=== PATIENT | female | born 1950 | race Caucasian/White ===

== ENCOUNTER 2016-12-26 14:02 | Inpatient (IN) | payer MEDICAID ==
[~2016-12-26] VITALS: Ht 149.9 cm; Wt 28.2 kg
[~2016-12-26 14:02] MED LIST: ALPR1TAB7 PO; ASCO500T11 PO; ASPI81CH43 PO; BACL10TA PO; DIC10C PO; ESOM40CA39 PO; FER325T PO; MET25T PO; TRAZ100T2 PO
[2016-12-26] MEDS ORDERED: ACETAMINOPHEN 325 MG TAB PO ONE ×2 (14:15→14:30)
[2016-12-26 14:49] LABS: Basophils # (auto) 0 uL; Basophils % (auto) 0.4 % (0.0-2.0); CONDITION Y; Eosinophils # (auto) 0.5 uL; Eosinophils % (auto) 4.8 % (0.0-7.0); Hematocrit 28.5 % (36.0-46.0); Hemoglobin 10.1 g/dL (12.2-16.2); Lymphocytes # (auto) 1.5 uL; Lymphocytes % (auto) 13.3 % (10.0-50.0); Mean Corpuscular Hemoglobin 34.1 pg (28.0-32.0); Mean Corpuscular Hgb Conc. 35.6 g/dL (32.0-36.0); Mean Corpuscular Volume 95.8 fL (80.0-100.0); Mean Platelet Volume 8.9 fL (7.4-10.4); Monocytes # (auto) 1.3 uL; Monocytes % (auto) 11.8 % (0.0-12.0); Neutrophils # (auto) 7.9 uL; Neutrophils % (auto) 69.7 % (37.0-80.0); Platelet Count (auto) 339 10^3/uL (140-450); Red Cell Distribution Width 14.4 % (11.6-16.0); White Blood Cell 11.3 10^3/uL (4.4-10.8)
[2016-12-26 15:20] LABS: Albumin 3.6 g/dL (3.4-5.0); BUN/Creatinine Ratio 22.2; Bilirubin, Total 1.1 mg/dL (0.2-1.0); Calcium 8.6 mg/dL (8.5-10.1); Potassium 3.7 mmol/L (3.5-5.1); Total Protein 7.4 g/dL (6.4-8.2)
[2016-12-26] MEDS ORDERED: ASPirin-EC 81 mg tab PO ONE (16:45)
[2016-12-26] MEDS ORDERED: TEMAZEPAM 15 MG CAP PO PRN (17:45)
[2016-12-26] MEDS ORDERED: MORPHINE SULFATE 4 MG/ML SYRG IV PRN (17:45)
[2016-12-26] MEDS ORDERED: NITROGLYCERIN 0.4 MG SL TAB SL PRN (17:45)
[2016-12-26] MEDS ORDERED: HYDROcodone-ACET 5/325MG TAB PO PRN (17:45)
[2016-12-26] MEDS ORDERED: VANCOMYCIN PER PHARMACY 0 MG IV SCH (17:45)
[2016-12-26] MEDS ORDERED: PROMETHAZINE HCL 25 MG/ML 1ML IV PRN (17:45)
[2016-12-26] MEDS ORDERED: DEXTROSE (50%) 50ML SYRG IV PRN (17:45)
[2016-12-26] MEDS ORDERED: ACETAMINOPHEN 500 MG TAB PO PRN (17:45)
[2016-12-26] MEDS ORDERED: LACTULOSE 20Gm/30ML SOLN PO PRN (17:45)
[2016-12-26] MEDS: SODIUM CHLORIDE 0.9% 1,000 ML IV SCH (17:56)
[2016-12-26] MEDS: ACCU-CHEK COMFORT CURVE STRIP VI SCH (17:56)
[2016-12-26] MEDS: FERROUS SULFATE 325 MG TAB PO SCH (18:01)
[2016-12-26] MEDS: PIPERACILLIN-TAZOB 3.375GM 100 ML IV SCH (18:18)
[2016-12-26] MEDS ORDERED: VANCOMYCIN 1GM/250ML D5W 250 ML IV ONE (19:30)
[2016-12-26 21:30] VITALS: BP 122/69
[2016-12-26] MEDS: MUPIROCIN 2% OINT 22GM TOP SCH (22:00)
[2016-12-26 22:30] VITALS: BP 122/69
[2016-12-26] MEDS: ALPRAZolam 0.5 MG TAB PO SCH (22:48)
[2016-12-26] MEDS: BACLOFEN 10 MG TAB PO SCH (22:48)
[2016-12-26] MEDS: ASCORBIC ACID 500 MG TAB PO SCH (22:48)
[2016-12-26] MEDS: traZODone HCL 50 MG TAB PO SCH (22:48)
[2016-12-26] MEDS: METOPROLOL TARTRATE 25 MG TAB PO SCH (22:49)
[2016-12-27] VITALS (8 sets, daily range): BP systolic 91–122; BP diastolic 52–69
[2016-12-27] MEDS: PIPERACILLIN-TAZOB 3.375GM 100 ML IV SCH ×4 (00:56→19:14)
[2016-12-27] MEDS: MORPHINE SULFATE 4 MG/ML SYRG IV PRN ×3 (03:36→19:29)
[2016-12-27] MEDS: ACCU-CHEK COMFORT CURVE STRIP VI SCH ×3 (06:00→12:00)
[2016-12-27] MEDS: SODIUM CHLORIDE 0.9% 1,000 ML IV SCH ×2 (06:11→13:15)
[2016-12-27] MEDS: BACLOFEN 10 MG TAB PO SCH ×3 (06:40→21:57)
[2016-12-27] MEDS: ALPRAZolam 0.5 MG TAB PO SCH ×3 (06:40→21:58)
[2016-12-27 07:29] LABS: Albumin 3.1 g/dL (3.4-5.0); BUN/Creatinine Ratio 16.2; Calcium 8.1 mg/dL (8.5-10.1); Potassium 3.5 mmol/L (3.5-5.1)
[2016-12-27 07:32] LABS: Bilirubin, Total 0.9 mg/dL (0.2-1.0); Total Protein 6.5 g/dL (6.4-8.2)
[2016-12-27 07:56] LABS: Basophils # (auto) 0 uL; Basophils % (auto) 0.2 % (0.0-2.0); CONDITION Y; DEFINITIVE SEE PRINTOUT; Eosinophils # (auto) 0.7 uL; Eosinophils % (auto) 7.5 % (0.0-7.0); Hematocrit 29.3 % (36.0-46.0); Hemoglobin 10.2 g/dL (12.2-16.2); Lymphocytes % (auto) 10.8 % (10.0-50.0); Mean Corpuscular Hemoglobin 30.8 pg (28.0-32.0); Mean Corpuscular Hgb Conc. 34.7 g/dL (32.0-36.0); Mean Corpuscular Volume 88.6 fL (80.0-100.0); Monocytes # (auto) 1.1 uL; Monocytes % (auto) 11.9 % (0.0-12.0); Neutrophils # (auto) 6.6 uL; Neutrophils % (auto) 69.6 % (37.0-80.0); Platelet Count (auto) 256 10^3/uL (140-450); Red Cell Distribution Width 14.8 % (11.6-16.0); White Blood Cell 9.5 10^3/uL (4.4-10.8)
[2016-12-27] MEDS: MUPIROCIN 2% OINT 22GM TOP SCH ×2 (10:00→10:19)
[2016-12-27] MEDS ORDERED: PATIENTS OWN MEDICATION (Esomeprazole Magnesium Trihydr (Nexium) 1 CAP) PO SCH (10:00)
[2016-12-27] MEDS: METOPROLOL TARTRATE 25 MG TAB PO SCH ×2 (10:00→21:58)
[2016-12-27] MEDS: PANTOPRAZOLE 40 MG TAB PO SCH (10:18)
[2016-12-27] MEDS: ASPirin 81 mg TAB PO SCH (10:18)
[2016-12-27] MEDS: ASCORBIC ACID 500 MG TAB PO SCH ×2 (10:18→21:58)
[2016-12-27] MEDS: ENOXAPARIN SOD 40 MG/0.4 ML SYRINGE SC SCH (10:19)
[2016-12-27] MEDS: FERROUS SULFATE 325 MG TAB PO SCH ×2 (10:42→18:40)
[2016-12-27] MEDS ORDERED: DEXTROSE (50%) 50ML SYRG IV PRN (11:00)
[2016-12-27] MEDS ORDERED: SENNA 8.6 MG TAB PO PRN (11:00)
[2016-12-27] MEDS ORDERED: ONDANSETRON HCL 4 MG/2 ML VIAL IV PRN (11:00)
[2016-12-27] MEDS ORDERED: NITROGLYCERIN 0.4MG/HR TOPICAL PATCH TD ONE (11:15)
[2016-12-27] MEDS ORDERED: InsuLIN REG 1unit/0.01ml Soln (100units/ml) SC SCH (11:30)
[2016-12-27] MEDS ORDERED: ACCU-CHEK COMFORT CURVE STRIP VI SCH (11:30)
[2016-12-27] MEDS: Boost Glucose Control 8 Ounces PO SCH ×2 (12:00→18:00)
[2016-12-27] MEDS: HYDROcodone-ACET 7.5/325MG TAB PO PRN (14:07)
[2016-12-27] MEDS: VANCOMYCIN 750 MG in D5W 5% 250 ML IV SCH (18:40)
[2016-12-27] MEDS: IPRATROPIUM BROM 0.5 MG/2.5ML INH SOL NEB SCH (20:17)
[2016-12-27] MEDS: traZODone HCL 50 MG TAB PO SCH (21:57)
[2016-12-27] MEDS: DOCUSATE SOD 100 MG CAP PO SCH (21:57)
[2016-12-28] VITALS (8 sets, daily range): BP systolic 92–139; BP diastolic 47–67
[2016-12-28] MEDS: MORPHINE SULFATE 4 MG/ML SYRG IV PRN ×5 (00:43→23:49)
[2016-12-28] MEDS: IPRATROPIUM BROM 0.5 MG/2.5ML INH SOL NEB SCH ×4 (00:50→18:52)
[2016-12-28] MEDS: BACLOFEN 10 MG TAB PO SCH ×3 (05:34→22:36)
[2016-12-28] MEDS: PIPERACILLIN-TAZOB 3.375GM 100 ML IV SCH ×4 (05:34→20:00)
[2016-12-28] MEDS: ALPRAZolam 0.5 MG TAB PO SCH ×3 (05:34→22:37)
[2016-12-28] MEDS: SODIUM CHLORIDE 0.9% 1,000 ML IV SCH (05:55)
[2016-12-28 06:19] LABS: Potassium 3.7 mmol/L (3.5-5.1)
[2016-12-28 06:22] LABS: BUN/Creatinine Ratio 12.3
[2016-12-28] MEDS: Boost Glucose Control 8 Ounces PO SCH ×3 (08:00→19:03)
[2016-12-28] MEDS: ASPirin 81 mg TAB PO SCH (09:52)
[2016-12-28] MEDS: DOCUSATE SOD 100 MG CAP PO SCH ×2 (09:52→22:36)
[2016-12-28] MEDS: FERROUS SULFATE 325 MG TAB PO SCH ×2 (09:52→17:28)
[2016-12-28] MEDS: METOPROLOL TARTRATE 25 MG TAB PO SCH ×2 (09:53→22:36)
[2016-12-28] MEDS: PANTOPRAZOLE 40 MG TAB PO SCH (09:54)
[2016-12-28] MEDS: ENOXAPARIN SOD 40 MG/0.4 ML SYRINGE SC SCH (09:54)
[2016-12-28] MEDS: ASCORBIC ACID 500 MG TAB PO SCH ×2 (09:54→22:36)
[2016-12-28] MEDS ORDERED: NITROGLYCERIN 0.4MG/HR TOPICAL PATCH TD SCH (10:00)
[2016-12-28] MEDS: HYDROcodone-ACET 7.5/325MG TAB PO PRN ×2 (12:32→22:35)
[2016-12-28] MEDS: VANCOMYCIN 750 MG in D5W 5% 250 ML IV SCH (18:58)
[2016-12-28] MEDS: traZODone HCL 50 MG TAB PO SCH (22:35)
[2016-12-29] VITALS (7 sets, daily range): BP systolic 91–110; BP diastolic 54–66
[2016-12-29] MEDS: PIPERACILLIN-TAZOB 3.375GM 100 ML IV SCH ×4 (02:20→22:34)
[2016-12-29] MEDS: MORPHINE SULFATE 4 MG/ML SYRG IV PRN ×5 (04:13→22:33)
[2016-12-29] MEDS: IPRATROPIUM BROM 0.5 MG/2.5ML INH SOL NEB SCH ×4 (05:52→18:15)
[2016-12-29] MEDS: BACLOFEN 10 MG TAB PO SCH ×3 (06:14→22:27)
[2016-12-29] MEDS: ALPRAZolam 0.5 MG TAB PO SCH ×3 (06:14→22:27)
[2016-12-29] MEDS: Boost Glucose Control 8 Ounces PO SCH ×3 (08:00→18:02)
[2016-12-29] MEDS: ENOXAPARIN SOD 40 MG/0.4 ML SYRINGE SC SCH (09:44)
[2016-12-29] MEDS: PANTOPRAZOLE 40 MG TAB PO SCH (09:44)
[2016-12-29] MEDS: ASPirin 81 mg TAB PO SCH (09:44)
[2016-12-29] MEDS: ASCORBIC ACID 500 MG TAB PO SCH ×2 (09:45→22:28)
[2016-12-29] MEDS: DOCUSATE SOD 100 MG CAP PO SCH ×2 (09:45→22:26)
[2016-12-29] MEDS: METOPROLOL TARTRATE 25 MG TAB PO SCH ×2 (09:47→22:30)
[2016-12-29] MEDS: FERROUS SULFATE 325 MG TAB PO SCH ×2 (09:48→18:02)
[2016-12-29] MEDS: SODIUM CHLORIDE 0.9% 1,000 ML IV SCH ×2 (10:50→15:15)
[2016-12-29] MEDS ORDERED: VANCOMYCIN 750 MG in D5W 5% 250 ML IV SCH (19:00)
[2016-12-29] MEDS: VANCOMYCIN 750 MG in D5W 5% 250 ML IV SCH (20:00)
[2016-12-29] MEDS: HYDROcodone-ACET 7.5/325MG TAB PO PRN (21:00)
[2016-12-29] MEDS: traZODone HCL 50 MG TAB PO SCH (22:28)
[2016-12-30] VITALS (7 sets, daily range): BP systolic 93–130; BP diastolic 54–66
[2016-12-30] MEDS: PIPERACILLIN-TAZOB 3.375GM 100 ML IV SCH ×4 (02:56→21:00)
[2016-12-30] MEDS: MORPHINE SULFATE 4 MG/ML SYRG IV PRN ×4 (05:55→18:28)
[2016-12-30] MEDS: ALPRAZolam 0.5 MG TAB PO SCH ×3 (05:56→23:01)
[2016-12-30] MEDS: BACLOFEN 10 MG TAB PO SCH ×3 (05:56→23:01)
[2016-12-30] MEDS: IPRATROPIUM BROM 0.5 MG/2.5ML INH SOL NEB SCH ×4 (06:12→19:51)
[2016-12-30 06:47] LABS: Basophils # (auto) 0 uL; Basophils % (auto) 0.4 % (0.0-2.0); CONDITION Y; DEFINITIVE SEE PRINTOUT; Hematocrit 24.7 % (36.0-46.0); Hemoglobin 8.7 g/dL (12.2-16.2); Lymphocytes # (auto) 1.4 uL; Lymphocytes % (auto) 14.2 % (10.0-50.0); Mean Corpuscular Hemoglobin 33.6 pg (28.0-32.0); Mean Corpuscular Volume 95.9 fL (80.0-100.0); Mean Platelet Volume 8.4 fL (7.4-10.4); Monocytes % (auto) 10.4 % (0.0-12.0); Neutrophils # (auto) 6.3 uL; Platelet Count (auto) 307 10^3/uL (140-450); Red Cell Distribution Width 14.6 % (11.6-16.0); White Blood Cell 9.7 10^3/uL (4.4-10.8)
[2016-12-30 07:00] LABS: INR 0.95 (0.9-1.15); Prothrombin Time 10.4 sec (9.37-12.3)
[2016-12-30 07:10] LABS: Albumin 2.7 g/dL (3.4-5.0); Calcium 7.9 mg/dL (8.5-10.1); Magnesium 2.2 mg/dL (1.6-2.6); Potassium 3.6 mmol/L (3.5-5.1)
[2016-12-30 07:12] LABS: BUN/Creatinine Ratio 18.3
[2016-12-30 07:15] LABS: Bilirubin, Total 0.5 mg/dL (0.2-1.0); Total Protein 6.9 g/dL (6.4-8.2)
[2016-12-30] MEDS: SODIUM CHLORIDE 0.9% 1,000 ML IV SCH (08:09)
[2016-12-30] MEDS: Boost Glucose Control 8 Ounces PO SCH ×3 (08:10→17:39)
[2016-12-30] MEDS: FERROUS SULFATE 325 MG TAB PO SCH ×2 (08:10→17:38)
[2016-12-30] MEDS: VANCOMYCIN 750 MG in D5W 5% 250 ML IV SCH ×2 (08:10→17:39)
[2016-12-30] MEDS: HYDROcodone-ACET 7.5/325MG TAB PO PRN ×3 (08:11→19:27)
[2016-12-30] MEDS ORDERED: POTASSIUM CHL 10 Meq TABLET PO ONE (08:30)
[2016-12-30] MEDS: PANTOPRAZOLE 40 MG TAB PO SCH (09:47)
[2016-12-30] MEDS: ASPirin 81 mg TAB PO SCH (09:47)
[2016-12-30] MEDS: ENOXAPARIN SOD 40 MG/0.4 ML SYRINGE SC SCH (09:47)
[2016-12-30] MEDS: DOCUSATE SOD 100 MG CAP PO SCH ×2 (09:47→23:01)
[2016-12-30] MEDS: METOPROLOL TARTRATE 25 MG TAB PO SCH ×2 (09:48→22:00)
[2016-12-30] MEDS: ASCORBIC ACID 500 MG TAB PO SCH ×2 (09:48→23:01)
[2016-12-30] MEDS: CALCIUM W/VIT D (600MG/400IU) TAB PO SCH (17:38)
[2016-12-30] MEDS: LORazepam 0.5 MG TAB PO PRN (19:27)
[2016-12-30] MEDS: traZODone HCL 50 MG TAB PO SCH (23:01)
[2016-12-31] VITALS (8 sets, daily range): BP systolic 106–116; BP diastolic 59–76
[2016-12-31] MEDS: IPRATROPIUM BROM 0.5 MG/2.5ML INH SOL NEB SCH ×4 (00:32→18:55)
[2016-12-31] MEDS: SODIUM CHLORIDE 0.9% 1,000 ML IV SCH (00:35)
[2016-12-31] MEDS: HYDROcodone-ACET 7.5/325MG TAB PO PRN ×3 (02:09→17:47)
[2016-12-31] MEDS: LORazepam 0.5 MG TAB PO PRN (02:15)
[2016-12-31] MEDS: MORPHINE SULFATE 4 MG/ML SYRG IV PRN ×4 (03:52→23:54)
[2016-12-31] MEDS: PIPERACILLIN-TAZOB 3.375GM 100 ML IV SCH (03:52)
[2016-12-31] MEDS: BACLOFEN 10 MG TAB PO SCH ×3 (05:42→21:45)
[2016-12-31] MEDS: ALPRAZolam 0.5 MG TAB PO SCH ×3 (05:42→21:45)
[2016-12-31 07:24] LABS: Basophils # (auto) 0.1 uL; Basophils % (auto) 0.6 % (0.0-2.0); CONDITION Y; DEFINITIVE SEE PRINTOUT; Eosinophils % (auto) 10.4 % (0.0-7.0); Hematocrit 26.8 % (36.0-46.0); Hemoglobin 9.2 g/dL (12.2-16.2); Lymphocytes # (auto) 1.5 uL; Lymphocytes % (auto) 16.9 % (10.0-50.0); Mean Corpuscular Hemoglobin 31.7 pg (28.0-32.0); Mean Corpuscular Hgb Conc. 34.3 g/dL (32.0-36.0); Mean Corpuscular Volume 92.6 fL (80.0-100.0); Mean Platelet Volume 8.7 fL (7.4-10.4); Monocytes # (auto) 0.9 uL; Monocytes % (auto) 9.7 % (0.0-12.0); Neutrophils # (auto) 5.7 uL; Neutrophils % (auto) 62.4 % (37.0-80.0); Platelet Count (auto) 316 10^3/uL (140-450); Red Cell Distribution Width 15.1 % (11.6-16.0); White Blood Cell 9.2 10^3/uL (4.4-10.8)
[2016-12-31 07:26] LABS: INR 0.94 (0.9-1.15); Prothrombin Time 10.2 sec (9.37-12.3)
[2016-12-31] MEDS: Boost Glucose Control 8 Ounces PO SCH ×3 (08:00→18:27)
[2016-12-31] MEDS: CALCIUM W/VIT D (600MG/400IU) TAB PO SCH ×2 (08:48→17:44)
[2016-12-31] MEDS: FERROUS SULFATE 325 MG TAB PO SCH ×2 (08:48→17:47)
[2016-12-31] MEDS: VANCOMYCIN 750 MG in D5W 5% 250 ML IV SCH ×2 (08:49→22:18)
[2016-12-31 09:06] LABS: Albumin 2.9 g/dL (3.4-5.0); BUN/Creatinine Ratio 20.7; Calcium 8.5 mg/dL (8.5-10.1); Magnesium 2.3 mg/dL (1.6-2.6); Potassium 3.9 mmol/L (3.5-5.1)
[2016-12-31 09:09] LABS: Bilirubin, Total 0.5 mg/dL (0.2-1.0); Total Protein 7.3 g/dL (6.4-8.2)
[2016-12-31] MEDS: METOPROLOL TARTRATE 25 MG TAB PO SCH ×2 (10:19→21:47)
[2016-12-31] MEDS: ASCORBIC ACID 500 MG TAB PO SCH ×2 (10:20→21:46)
[2016-12-31] MEDS: DOCUSATE SOD 100 MG CAP PO SCH ×2 (10:20→21:46)
[2016-12-31] MEDS: ENOXAPARIN SOD 40 MG/0.4 ML SYRINGE SC SCH (10:20)
[2016-12-31] MEDS: ASPirin 81 mg TAB PO SCH (10:20)
[2016-12-31] MEDS: PANTOPRAZOLE 40 MG TAB PO SCH ×2 (10:20→21:46)
[2016-12-31] MEDS ORDERED: DOXYCYCLINE 100 MG TAB/CAP PO SCH (11:30)
[2016-12-31] MEDS ORDERED: CLIN1CAP4 PO (12:54)
[2016-12-31] MEDS ORDERED: SACC250C PO (12:54)
[2016-12-31] MEDS ORDERED: LEVO500T21 PO (12:54)
[2016-12-31] MEDS: CLINDAMYCIN HCL 150 MG CAP PO SCH ×2 (13:51→21:45)
[2016-12-31] MEDS: LEVOFLOXACIN 500 MG TAB PO SCH (13:52)
[2016-12-31] MEDS: traZODone HCL 50 MG TAB PO SCH (21:46)
[2017-01-01] MEDS: HYDROcodone-ACET 7.5/325MG TAB PO PRN (03:02)
[2017-01-01 05:00] VITALS: BP 123/70
[2017-01-01] MEDS: CLINDAMYCIN HCL 150 MG CAP PO SCH (05:34)
[2017-01-01] MEDS: BACLOFEN 10 MG TAB PO SCH (05:34)
[2017-01-01] MEDS: ALPRAZolam 0.5 MG TAB PO SCH (05:35)
[2017-01-01] MEDS: IPRATROPIUM BROM 0.5 MG/2.5ML INH SOL NEB SCH ×3 (06:09→11:34)
[2017-01-01 08:00] VITALS: BP 123/70
[2017-01-01 08:40] VITALS: BP 122/71
[2017-01-01] MEDS: Boost Glucose Control 8 Ounces PO SCH ×2 (08:49→12:07)
[2017-01-01] MEDS: CALCIUM W/VIT D (600MG/400IU) TAB PO SCH (08:49)
[2017-01-01] MEDS: FERROUS SULFATE 325 MG TAB PO SCH (08:49)
[2017-01-01] MEDS: MORPHINE SULFATE 4 MG/ML SYRG IV PRN (08:50)
[2017-01-01] MEDS: LEVOFLOXACIN 500 MG TAB PO SCH (09:52)
[2017-01-01] MEDS: VANCOMYCIN 750 MG in D5W 5% 250 ML IV SCH (09:52)
[2017-01-01] MEDS: ASPirin 81 mg TAB PO SCH (09:52)
[2017-01-01] MEDS: DOCUSATE SOD 100 MG CAP PO SCH (09:52)
[2017-01-01] MEDS: ENOXAPARIN SOD 40 MG/0.4 ML SYRINGE SC SCH (09:54)
[2017-01-01] MEDS: METOPROLOL TARTRATE 25 MG TAB PO SCH (09:54)
[2017-01-01] MEDS: ASCORBIC ACID 500 MG TAB PO SCH (09:54)
[2017-01-01] MEDS: PANTOPRAZOLE 40 MG TAB PO SCH (09:54)
[2017-01-01 13:00] VITALS: BP 105/61
[2017-01-01 13:12] VITALS: BP 123/70
== END 2017-01-01 14:00 | disposition home health service (06) | DRG 721 ==
LOC: ER 14:02 → TELE 14:03 → TELE-CENTR 21:06
PROVIDERS: ADMIT Internal Medicine; ATTEND Internal Medicine
DX: T81.4XXA Infection following a procedure, initial encounter (principal); E87.1 Hypo-osmolality and hyponatremia; I10 Essential (primary) hypertension; I25.110 Atherosclerotic heart disease of native coronary artery with unstable angina pectoris; K21.9 Gastro-esophageal reflux disease without esophagitis; E03.9 Hypothyroidism, unspecified; B19.20 Unspecified viral hepatitis C without hepatic coma; R73.9 Hyperglycemia, unspecified; E78.5 Hyperlipidemia, unspecified; Y83.8 Other surgical procedures as the cause of abnormal reaction of the patient, or of later complication, without mention of misadventure at the time of the procedure; F41.9 Anxiety disorder, unspecified; Z95.1 Presence of aortocoronary bypass graft; Z82.49 Family history of ischemic heart disease and other diseases of the circulatory system; Z87.891 Personal history of nicotine dependence; Z88.1 Allergy status to other antibiotic agents; Z88.2 Allergy status to sulfonamides; Z79.82 Long term (current) use of aspirin; Z79.899 Other long term (current) drug therapy; Z90.49 Acquired absence of other specified parts of digestive tract; Z98.51 Tubal ligation status; Y92.89 Other specified places as the place of occurrence of the external cause; Z72.89 Other problems related to lifestyle
CPT/HCPCS: 36415; 71010; 80048; 80053; 80202; 82962; 83036; 83735; 84484; 85025; 85610; 85652; 87040; 87081; 87205; 93005; 94640; 96365; 97116; 97163; 97530; J2543; J7060

== ENCOUNTER → 2017-04-11 | Outpatient (CLI) | payer MEDICAID ==
[~2017-04-11] MED LIST changes: +CLIN1CAP4 PO; +LEVO500T21 PO; +SACC250C PO
[2017-04-11 12:14] LABS: Basophils # (auto) 0.1 uL; Basophils % (auto) 1.1 % (0.0-2.0); Eosinophils # (auto) 0.1 uL; Eosinophils % (auto) 2.9 % (0.0-7.0); Hematocrit 42.1 % (36.0-46.0); Hemoglobin 14.1 g/dL (12.2-16.2); Lymphocytes # (auto) 2.5 uL; Lymphocytes % (auto) 53.2 % (10.0-50.0); Mean Corpuscular Hemoglobin 29.2 pg (28.0-32.0); Mean Corpuscular Hgb Conc. 33.4 g/dL (32.0-36.0); Mean Corpuscular Volume 87.7 fL (80.0-100.0); Monocytes # (auto) 0.4 uL; Monocytes % (auto) 7.8 % (0.0-12.0); Neutrophils # (auto) 1.7 uL; Nucleated Red Blood Cells % 0.2 %; Platelet Count (auto) 155 10^3/uL (140-450); Red Cell Distribution Width 13.6 % (11.8-14.3); White Blood Cell 4.8 10^3/uL (4.4-10.8)
[2017-04-11 12:41] LABS: Albumin 3.4 g/dL (3.4-5.0); BUN/Creatinine Ratio 9.6; Bilirubin, Total 0.3 mg/dL (0.2-1.0); Potassium 4.5 mmol/L (3.5-5.1); Total Protein 8.1 g/dL (6.4-8.2)
== END | disposition home or self-care (01) ==
LOC: LAB 11:02
PROVIDERS: ATTEND Internal Medicine Cardiovascular Disease
DX: I25.810 Atherosclerosis of coronary artery bypass graft(s) without angina pectoris (principal); I10 Essential (primary) hypertension
CPT/HCPCS: 36415; 80053; 80061; 84443; 85025

== ENCOUNTER → 2018-04-08 | Outpatient (CLI) | payer MEDICARE, MEDICAID ==
[2018-04-08 10:49] LABS: Basophils # (auto) 0 uL; Basophils % (auto) 0.9 % (0.0-2.0); Eosinophils # (auto) 0.1 uL; Eosinophils % (auto) 2.7 % (0.0-7.0); Hematocrit 40.6 % (36.0-46.0); Hemoglobin 13.5 g/dL (12.2-16.2); Lymphocytes # (auto) 1.3 uL; Lymphocytes % (auto) 36.3 % (10.0-50.0); Mean Corpuscular Hemoglobin 29.8 pg (28.0-32.0); Mean Corpuscular Hgb Conc. 33.4 g/dL (32.0-36.0); Mean Corpuscular Volume 89.4 fL (80.0-100.0); Monocytes # (auto) 0.4 uL; Neutrophils # (auto) 1.7 uL; Neutrophils % (auto) 49.1 % (37.0-80.0); Platelet Count (auto) 150 10^3/uL (140-450); Red Blood Cells 4.53 10^6/uL (4.0-5.20); Red Cell Distribution Width 13.4 % (11.8-14.3); White Blood Cell 3.5 10^3/uL (4.4-10.8)
[2018-04-08 11:06] LABS: Partial Thromboplastin Time 28.1 sec (23.78-33.04); Prothrombin Time 10.7 sec (9.27-12.13)
[2018-04-08 11:11] LABS: Urine Bacteria NONE SEEN /hpf (None Seen); Urine Blood Negative /uL (Negative); Urine WBC 2 /hpf (0 - 5)
[2018-04-08 11:14] LABS: Albumin 3.7 g/dL (3.4-5.0); BUN/Creatinine Ratio 6.3; Calcium 8.7 mg/dL (8.5-10.1); Potassium 3.7 mmol/L (3.5-5.1)
[2018-04-08 11:17] LABS: Bilirubin, Total 0.6 mg/dL (0.2-1.0); Total Protein 8.9 g/dL (6.4-8.2)
== END | disposition home or self-care (01) ==
LOC: LAB 10:00
PROVIDERS: ATTEND Nurse Practitioner
DX: I25.10 Atherosclerotic heart disease of native coronary artery without angina pectoris (principal); B18.2 Chronic viral hepatitis C; E78.5 Hyperlipidemia, unspecified
CPT/HCPCS: 36415; 80053; 80061; 81001; 85025; 85610; 85730

== ENCOUNTER → 2018-08-18 | Outpatient (CLI) | payer MEDICARE, MEDICAID ==
[2018-08-18 09:26] LABS: Basophils # (auto) 0 uL; Basophils % (auto) 0.7 % (0.0-2.0); Eosinophils # (auto) 0 uL; Eosinophils % (auto) 1.4 % (0.0-7.0); Hematocrit 38.1 % (36.0-46.0); Hemoglobin 12.6 g/dL (12.2-16.2); Lymphocytes # (auto) 0.9 uL; Lymphocytes % (auto) 27.2 % (10.0-50.0); Mean Corpuscular Hemoglobin 30.3 pg (28.0-32.0); Mean Corpuscular Hgb Conc. 33.1 g/dL (32.0-36.0); Mean Corpuscular Volume 91.4 fL (80.0-100.0); Monocytes # (auto) 0.4 uL; Monocytes % (auto) 10.9 % (0.0-12.0); Neutrophils % (auto) 59.8 % (37.0-80.0); Platelet Count (auto) 154 10^3/uL (140-450); Red Blood Cells 4.17 10^6/uL (4.0-5.20); White Blood Cell 3.3 10^3/uL (4.4-10.8)
[2018-08-18 09:48] LABS: Urine Specific Gravity 1.009 (1.001-1.035)
[2018-08-18 09:49] LABS: Urine Blood Negative /uL (Negative)
[2018-08-18 10:32] LABS: Urine Bacteria NONE SEEN /hpf (None Seen)
[2018-08-18 10:33] LABS: Urine WBC 0 /hpf (0 - 5)
[2018-08-18 10:58] LABS: Potassium 4.6 mmol/L (3.5-5.1)
[2018-08-18 11:06] LABS: BUN/Creatinine Ratio 5.9; Bilirubin, Total 0.3 mg/dL (0.2-1.0); Calcium 8.5 mg/dL (8.5-10.1); Total Protein 7.4 g/dL (6.4-8.2)
== END | disposition home or self-care (01) ==
LOC: LAB 08:44
PROVIDERS: ATTEND Nurse Practitioner
DX: E78.5 Hyperlipidemia, unspecified (principal)
CPT/HCPCS: 36415; 80053; 80061; 81001; 84443; 85025

== ENCOUNTER → 2019-03-12 | Outpatient (CLI) | payer MEDICARE, MEDICAID ==
[~2019-03-12] MED LIST changes: -CLIN1CAP4 PO; +CLIN300C8 PO
[2019-03-12 10:26] LABS: Basophils # (auto) 0 uL; Basophils % (auto) 0.8 % (0.0-2.0); Eosinophils # (auto) 0.1 uL; Eosinophils % (auto) 2.3 % (0.0-7.0); Hematocrit 37.9 % (36.0-46.0); Hemoglobin 12.8 g/dL (12.2-16.2); Lymphocytes # (auto) 1.1 uL; Lymphocytes % (auto) 35.2 % (10.0-50.0); Mean Corpuscular Hemoglobin 31.5 pg (28.0-32.0); Mean Corpuscular Hgb Conc. 33.7 g/dL (32.0-36.0); Mean Corpuscular Volume 93.5 fL (80.0-100.0); Monocytes # (auto) 0.4 uL; Monocytes % (auto) 11.5 % (0.0-12.0); Neutrophils # (auto) 1.6 uL; Neutrophils % (auto) 50.2 % (37.0-80.0); Platelet Count (auto) 112 10^3/uL (140-450); Red Blood Cells 4.06 10^6/uL (4.0-5.20); Red Cell Distribution Width 14.2 % (11.8-14.3); White Blood Cell 3.1 10^3/uL (4.4-10.8)
[2019-03-12 10:30] LABS: Albumin 2.9 g/dL (3.4-5.0); Calcium 8.4 mg/dL (8.5-10.1); Potassium 3.6 mmol/L (3.5-5.1)
[2019-03-12 10:38] LABS: BUN/Creatinine Ratio 8.6; Bilirubin, Total 0.3 mg/dL (0.2-1.0); Total Protein 7.1 g/dL (6.4-8.2)
== END | disposition home or self-care (01) ==
LOC: LAB 09:36
PROVIDERS: ATTEND Nurse Practitioner
DX: E78.5 Hyperlipidemia, unspecified (principal)
CPT/HCPCS: 36415; 80053; 80061; 85025

== ENCOUNTER 2020-08-11 14:14 | Emergency (ER) | payer BC, MEDICAID ==
[~2020-08-11] VITALS: Ht 149.9 cm; Wt 47.6 kg
[~2020-08-11 14:14] MED LIST changes: -DIC10C PO; +DICY10CA PO; -LEVO500T21 PO; +LEVO500T31 PO; -TRAZ100T2 PO; +TRAZ100T3 PO
[2020-08-11] MEDS ORDERED: SODIUM CHLORIDE 0.9% 1,000 ML IV ONE (14:30)
[2020-08-11] MEDS ORDERED: amLODIPine BESYLATE 5 MG TAB PO ONE (15:00)
[2020-08-11] MEDS ORDERED: LABETALOL HCL 5 MG/ML 4ML SYRINGE IV ONE (15:00)
[2020-08-11 15:48] LABS: Hematocrit 36.6 % (36.0-46.0); Hemoglobin 12.7 g/dL (12.2-16.2); Mean Corpuscular Hemoglobin 33.7 pg (28.0-32.0); Mean Corpuscular Hgb Conc. 34.6 g/dL (32.0-36.0); Mean Corpuscular Volume 97.2 fL (80.0-100.0); Platelet Count (auto) 143 10^3/uL (140-450); Red Blood Cells 3.77 10^6/uL (4.0-5.20); Red Cell Distribution Width 13.5 % (11.8-14.3); White Blood Cell 2.5 10^3/uL (4.4-10.8)
[2020-08-11 16:05] LABS: Anion Gap 5 (5-15); Calcium 8.5 mg/dL (8.5-10.1); Carbon Dioxide 27 mmol/L (21-32); Chloride 104 mmol/L (98-107); Potassium 3.2 mmol/L (3.5-5.1); Sodium 136 mmol/L (136-145)
[2020-08-11 16:06] LABS: Band Neutrophils % (manual) 0; Basophils % (manual) 0 (0.0-2.0); Blast Cells 0; Eosinophils % (manual) 0 (0-7); Metamyelocytes % 0; Myelocytes % 0; Promyelocytes % 0; Reactive Lymphocytes 0
[2020-08-11 16:13] LABS: Alanine Aminotransferase 158 U/L (13-56); Albumin 3.3 g/dL (3.4-5.0); Alkaline Phosphatase 134 U/L (45-117); Aspartate Aminotransferase 192 U/L (15-37); BUN/Creatinine Ratio 9.5; Bilirubin, Total 0.8 mg/dL (0.2-1.0); Blood Urea Nitrogen 6 mg/dL (7-18); GFR African American 121 mL/min; GFR Non-African American 100 mL/min; Glucose 117 mg/dL (74-106); Total Protein 8.3 g/dL (6.4-8.2)
[2020-08-11 16:32] LABS: INR 1.08 (0.9-1.15); Partial Thromboplastin Time 27.4 sec (23.0-31.2)
[2020-08-11 16:35] LABS: Lymphocytes % (manual) 38 (10.0-50.0); Monocytes % (manual) 17 (0-12)
[2020-08-11 16:54] LABS: Urine Bacteria FEW /hpf (None Seen); Urine Blood Negative /uL (Negative); Urine Specific Gravity 1.003 (1.001-1.035); Urine WBC 7 /hpf (0 - 5)
[2020-08-11 17:25] VITALS: BP 163/74
== END 2020-08-11 18:23 | disposition home or self-care (01) ==
LOC: EDBD 14:14 → ER 14:14
DX: S09.8XXA Other specified injuries of head, initial encounter (principal); I16.1 Hypertensive emergency; I10 Essential (primary) hypertension; K21.9 Gastro-esophageal reflux disease without esophagitis; I25.2 Old myocardial infarction; Z90.49 Acquired absence of other specified parts of digestive tract; Z98.51 Tubal ligation status; Z88.2 Allergy status to sulfonamides; Z88.6 Allergy status to analgesic agent; Z87.891 Personal history of nicotine dependence; W18.39XA Other fall on same level, initial encounter; Y93.89 Activity, other specified; Y92.89 Other specified places as the place of occurrence of the external cause; Y99.8 Other external cause status
CPT/HCPCS: 36415; 70450; 70486; 71045; 80053; 81001; 84484; 85007; 85027; 85610; 85730; 96361; 96374; 99285; J3490; J7030

== ENCOUNTER 2021-07-09 12:41 | Emergency (ER) | payer MEDICARE, MEDICAID ==
[~2021-07-09] VITALS: Ht 172.7 cm; Wt 54.4 kg
[2021-07-09 18:42] VITALS: BP 158/77
== END 2021-07-09 18:44 | disposition home or self-care (01) ==
LOC: EDBD 12:41 → ER 12:41
DX: S01.01XA Laceration without foreign body of scalp, initial encounter (principal); K21.9 Gastro-esophageal reflux disease without esophagitis; E78.5 Hyperlipidemia, unspecified; I10 Essential (primary) hypertension; F12.10 Cannabis abuse, uncomplicated; Z90.49 Acquired absence of other specified parts of digestive tract; Z98.51 Tubal ligation status; Z87.891 Personal history of nicotine dependence; Z88.2 Allergy status to sulfonamides; W18.09XA Striking against other object with subsequent fall, initial encounter; Y93.61 Activity, american tackle football; Y92.89 Other specified places as the place of occurrence of the external cause; Y99.8 Other external cause status
CPT/HCPCS: 70450

== ENCOUNTER → 2023-10-22 | Outpatient (CLI) | payer MEDICARE, OTHER ==
[~2023-10-22] MED LIST changes: +CLIN1CAP70 PO; -CLIN300C8 PO; +TRAZ-228 PO; -TRAZ100T3 PO
== END | disposition home or self-care (01) ==
LOC: XYW 15:23
PROVIDERS: ATTEND Student in an Organized Health Care Education/Training Program
DX: I08.1 Rheumatic disorders of both mitral and tricuspid valves (principal); I25.10 Atherosclerotic heart disease of native coronary artery without angina pectoris; Z95.1 Presence of aortocoronary bypass graft
CPT/HCPCS: 93306